=== PATIENT | female | born 1990 | race African-American/Black ===

== ENCOUNTER 2021-10-19 13:47 | Outpatient (CLI) | payer OTHER | END 2021-10-19 15:15 | disposition home or self-care (01) | LOC: PRENATAL 13:47 | PROVIDERS: ATTEND Obstetrics & Gynecology Maternal & Fetal Medicine | DX: O35.0XX1 Maternal care for (suspected) central nervous system malformation in fetus, fetus 1 (principal); O35.3XX1 Maternal care for (suspected) damage to fetus from viral disease in mother, fetus 1; O98.512 Other viral diseases complicating pregnancy, second trimester; O43.92 Unspecified placental disorder, second trimester; Z36.89 Encounter for other specified antenatal screening; Z3A.26 26 weeks gestation of pregnancy ==